=== PATIENT | female | born 1995 | race Caucasian/White ===

== ENCOUNTER 2016-05-09 17:50 | Emergency (ER) | payer OTHER ==
[~2016-05-09] VITALS: Ht 175.3 cm; Wt 97.5 kg
[2016-05-09 18:10] VITALS: BP 116/68
[2016-05-09] MEDS ORDERED: Methocarbamol 750mg tab ORAL ONE (18:30)
[2016-05-09] MEDS ORDERED: ROBAXIN-750750 MG PO (18:50)
[2016-05-09] MEDS ORDERED: IBUPROFEN600 MG ORAL (18:50)
[2016-05-09 18:58] VITALS: BP 116/68
--- NOTE | 2016-05-09 22:27 | Emergency Room Report ---
History of Present Illness General Chief Complaint: Pain Source: Family Member Present Illness HPI The patient is a 20-year-old female presenting with right neck and shoulder pain which began 2 days prior at work after lifting heavy objects. The patient states that she noticed the pain the morning after. Patient denies any known injury to the area. The patient states the pain is a 7/10 dull ache and doesn' t radiate from the area. Pain worse with arm movement. The patient has not tried any medications for this. Patient denies any other symptoms including ZIMMERMAN, numbness,tingling Allergies: Coded Allergies: No Known Allergies (Unverified , 05/09/16) Patient History Past Medical History: see triage record Pertinent Family History: none Last Menstrual Period: 05/07/16 Now: No Reviewed Nursing Documentation: PMH: Agreed, PSxH: Agreed Nursing Documentation-PMH Past Medical History: No Stated History Review of Systems All Other Systems: negative except mentioned in HPI Physical Exam Vital Signs Date Time Temp Pulse Resp B/P Pulse Ox O2 Delivery O2 Flow Rate FiO2 05/09/16 18:06 98.2 84 16 116/68 100 Room Air Sp02 EP Interpretation: reviewed, normal General Appearance: no apparent distress, alert, GCS 15, non-toxic Head: normocephalic, atraumatic Eyes: bilateral eye PERRL, bilateral eye normal inspection ENT: hearing grossly normal, normal pharynx, no angioedema, normal voice Neck: full range of motion, supple, no bony tend, supple/symm/no masses, tender lateral - R side Respiratory: chest non-tender, lungs clear, normal breath sounds, speaking full sentences Musculoskeletal: gait/station normal, normal range of motion, tender - TTP over R trapezius Neurologic: alert, oriented x3, responsive, motor strength/tone normal, sensory intact, normal gait, speech normal Psychiatric: judgement/insight normal, memory normal, mood/affect normal, no suicidal/homicidal ideation Skin: normal color, no rash, warm/dry, well hydrated Lymphatic: no adenopathy Procedures Splinting Splinting : Consent: Verbal Location: R arm Pre-Made Type: sling Pre-Proc Neuro Vasc Exam: normal Post-Proc Neuro Vasc Exam: normal Patient Tolerated: Well Complications: None Medical Decision Making PA Attestation Dr. Cifuentes is my supervising physician. Patient management was discussed with my supervising physician Diagnostic Impression: Primary Impression: Trapezius strain ER Course The patient is a 20-year-old female presenting with right neck and shoulder pain after lifting heavy objects at work Ddx considered include but not limited to sprain/strain, fracture, contusion Physical exam: Vitals within normal limits. No apparent distress There is tenderness to palpation over the right trapezius full active range of motion of the neck and shoulder. Sensation intact to light touch. No obvious deformity. Right arm placed in a sling. Patient is given Motrin and Robaxin. No imaging needed at this time. The patient will be discharged home with the same medications. ER precautions are given and the patient will followup with workers compensation. The patient is given limited time off of work and will return with limited use of right arm Last Vital Signs Date Time Temp Pulse Resp B/P Pulse Ox O2 Delivery O2 Flow Rate FiO2 05/09/16 18:58 98.2 16 116/68 100 Room Air 05/09/16 18:06 84 Status: improved Disposition: HOME, SELF-CARE Condition: Improved Scripts Methocarbamol* (ROBAXIN-750*) 750 Mg Tablet 750 MG PO TID, #21 TAB 0 Refills Prov: CLAY SHAH.A. 05/09/16 Ibuprofen* (MOTRIN*) 600 Mg Tablet 600 MG ORAL Q8H Y for For Pain, #30 TAB 0 Refills Prov: CLAY SHAH P.A. 05/09/16 Patient Instructions: Muscle Strain Additional Instructions: I discussed my findings with the patient. All questions and concerns have been answered. Treatment and medication compliance have been addressed. I advised the patient that they need to follow up with PMD in 3-5 days. Return to ED if pain remains or worsens, numbness or tingling occurs, new rash is noticed, fever is noticed, or if needed for any reason. Patient verbalized understanding of discharge instructions. CLAY SHAH May 09, 2016 22:26
== END 2016-05-09 18:58 | disposition home or self-care (01) ==
LOC: EMR 18:25
DX: S46.911A Strain of unspecified muscle, fascia and tendon at shoulder and upper arm level, right arm, initial encounter (principal); X50.0XXA Overexertion from strenuous movement or load, initial encounter; X50.9XXA Other and unspecified overexertion or strenuous movements or postures, initial encounter; Y92.9 Unspecified place or not applicable; Y99.0 Civilian activity done for income or pay
CPT/HCPCS: 99284